=== PATIENT | male | born 2000 | race Two or more races ===

== ENCOUNTER 2021-07-24 20:05 | Emergency (ER) | payer SELFPAY ==
[~2021-07-24] VITALS: Ht 175.3 cm; Wt 142.4 kg
[2021-07-24 21:23] VITALS: BP 106/73
== END 2021-07-25 00:40 | disposition left against medical advice (07) ==
LOC: ER 20:05
DX: R50.9 Fever, unspecified (principal); R05.9 Cough, unspecified; Z53.21 Procedure and treatment not carried out due to patient leaving prior to being seen by health care provider; Z20.822 Contact with and (suspected) exposure to COVID-19
CPT/HCPCS: 36415; 87804